=== PATIENT | male | born 1955 | race Caucasian/White ===

== ENCOUNTER → 2017-03-27 | Outpatient (REF) | payer OTHER ==
[~2017-03-27] MED LIST: ADV250INH INH; ALBU17IN INH; BETAPOW70 TOP; CETI10TA PO; CYCL25CA5 PO; SERT25TA PO; TIOT18INH INH
[2017-03-27 18:58] LABS: INR 1.23
== END ==
LOC: M LAB REF 17:20
PROVIDERS: ATTEND Thoracic Surgery (Cardiothoracic Vascular Surgery)
DX: R91.1 Solitary pulmonary nodule (principal); J43.9 Emphysema, unspecified

== ENCOUNTER → 2017-03-27 | Outpatient (CLI) | payer OTHER ==
--- NOTE | 2017-03-27 15:56 | PFTRPT ---
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 The patient was unable to maintain a pant frequency of 60 to 90 breaths per minute during the airway resistance measurement. The patient was given four puffs of albuterol for postbronchodilator. PULMONARY FUNCTION REPORT ORDERING PROVIDER: Francesco Srinivasan MD DATE OF SERVICE: 03/27/17 SPIROMETRY: Pre and post bronchodilator study of excellent technical quality. Some mild difficulty with effort is identified. The forced vital capacity is normal. The FEV1 is out of proportion. The obstructive index is, therefore, reduced. FLOW VOLUME LOOP: The expiratory limb of the flow volume loop does suggest airflow limitation. Favorable bronchodilator response is identified. Flattening of the inspiratory limb of the flow volume loop may be effort dependent, but will require clinical correlation. LUNG VOLUMES: The total lung capacity is elevated. The residual volume suggests concomitant air trapping. DIFFUSION CAPACITY: The diffusion capacity is severely reduced and does not correct for alveolar volume. HEMOGLOBIN: The hemoglobin is markedly reduced at 7.9. AIRWAY MECHANICS: Airways resistance and conductance are normal. IMPRESSION: Moderate obstructive ventilatory impairment with air trapping. Favorable bronchodilator response. Multifactorial diffusion capacity impairment with a significant anemia component. Please correlate clinically. MTDD
== END ==
LOC: M CARPUL 15:08
PROVIDERS: ATTEND Thoracic Surgery (Cardiothoracic Vascular Surgery)
DX: J43.9 Emphysema, unspecified (principal)

== ENCOUNTER → 2017-04-13 | Outpatient (CLI) | payer OTHER ==
--- NOTE | 2017-04-13 15:34 | REP ---
Clinical: Abnormal lung lesion. Solitary nodule. Comparison: 12/21/2016, 11/04/2015. Findings: Moderate to advanced diffuse COPD and emphysematous changes are appreciated along with mild bronchiectasis and scattered, predominantly bibasilar scarring. No pleural effusion or pneumothorax. Mediastinum demonstrates atherosclerotic changes to the thoracic aorta and coronary arteries without aortic aneurysm or cardiomegaly. No pericardial effusion. Mediastinal lymph nodes are nonspecific. Musculoskeletal structures demonstrate degenerative changes. Limited evaluation of the upper abdomen demonstrates normal bilateral adrenal glands. Small areas of subpleural density in the right base measuring 15 mm and left base measuring 17 mm are identified along with a subpleural nodular density in the apex of the right lower lobe measures 19 x 10 mm which are similar to prior examination dated 12/21/2016. The spiculated nodular lesion in the left upper lobe currently measures approximately 15 x 10 mm and again demonstrates subtle surrounding spiculation/scarring, but overall appears less conspicuous and somewhat less solid when compared to 12/21/2016. Impression: 1. Scattered subpleural nodular densities are similar to 12/21/2016. Left upper lobe spiculated nodule density is again appreciated but may be slightly less pronounced than prior examination. These findings warrant further investigation which may include a 3-6 months follow-up and/or PET-CT. 2. Chronic diffuse moderate to advanced COPD and emphysematous changes similar to prior examination. 3. No obvious adenopathy based on noncontrast evaluation of the mediastinum. 4. Atherosclerotic changes to the vasculature. Signed by Peter Aj MD 04/13/2017 03:25 P
== END ==
LOC: M RAD 14:12
PROVIDERS: ATTEND Thoracic Surgery (Cardiothoracic Vascular Surgery)
DX: R91.8 Other nonspecific abnormal finding of lung field (principal)